=== PATIENT | female | born 1960 | race Two or more races ===

== ENCOUNTER 2020-01-16 05:39 | Day surgery (SDC) | payer OTHER ==
[~2020-01-16 05:39] MED LIST: DANDELION ROOT; ECHINACEA
== END 2020-01-16 16:00 | disposition home or self-care (01) ==
LOC: CIR.AMB 05:39
PROVIDERS: ATTEND Orthopaedic Surgery
DX: M20.11 Hallux valgus (acquired), right foot (principal); Z20.828 Contact with and (suspected) exposure to other viral communicable diseases

== ENCOUNTER → 2020-01-18 | Outpatient (CLI) | payer OTHER | END | disposition home or self-care (01) | LOC: RAD 10:59 | PROVIDERS: ATTEND Orthopaedic Surgery | DX: S92.811A Other fracture of right foot, initial encounter for closed fracture (principal); M79.671 Pain in right foot; M20.11 Hallux valgus (acquired), right foot ==

== ENCOUNTER 2020-02-20 13:13 | Outpatient (CLI) | payer OTHER | END 2020-02-20 13:18 | disposition home or self-care (01) | LOC: RAD 13:13 | PROVIDERS: ATTEND Orthopaedic Surgery | DX: M77.31 Calcaneal spur, right foot (principal); M20.11 Hallux valgus (acquired), right foot; M79.671 Pain in right foot ==

== ENCOUNTER 2020-04-05 07:46 | Outpatient (CLI) | payer OTHER | END 2020-04-05 07:53 | disposition HB | LOC: RAD 07:46 | PROVIDERS: ATTEND Orthopaedic Surgery | DX: M79.671 Pain in right foot (principal); M20.11 Hallux valgus (acquired), right foot ==

== ENCOUNTER 2020-04-05 10:05 | Outpatient (CLI) | payer OTHER | END 2020-04-05 10:10 | disposition home or self-care (01) | LOC: LAB 10:05 | PROVIDERS: ATTEND Orthopaedic Surgery | DX: E56.1 Deficiency of vitamin K (principal) ==

== ENCOUNTER 2020-05-09 13:40 | Outpatient (CLI) | payer OTHER | END 2020-05-09 13:56 | disposition home or self-care (01) | LOC: RAD 13:40 | PROVIDERS: ATTEND Orthopaedic Surgery | DX: M20.11 Hallux valgus (acquired), right foot (principal); M79.671 Pain in right foot ==

== ENCOUNTER 2020-06-13 12:04 | Outpatient (CLI) | payer OTHER | END 2020-06-13 12:16 | disposition home or self-care (01) | LOC: RAD 12:04 | PROVIDERS: ATTEND Orthopaedic Surgery | DX: M79.671 Pain in right foot (principal); M20.11 Hallux valgus (acquired), right foot ==

== ENCOUNTER 2020-08-16 10:14 | Outpatient (CLI) | payer OTHER | END 2020-08-16 10:26 | disposition home or self-care (01) | LOC: RAD 10:14 | PROVIDERS: ATTEND Orthopaedic Surgery | DX: M20.11 Hallux valgus (acquired), right foot (principal) ==

== ENCOUNTER 2022-10-02 13:37 | Outpatient (CLI) | payer OTHER | END 2022-10-02 13:41 | disposition home or self-care (01) | LOC: RAD 13:37 | PROVIDERS: ATTEND Orthopaedic Surgery | DX: M25.571 Pain in right ankle and joints of right foot (principal) ==

== ENCOUNTER 2023-03-18 13:31 | Outpatient (CLI) | payer OTHER | END 2023-03-18 13:36 | disposition home or self-care (01) | LOC: RAD 13:31 | PROVIDERS: ATTEND Orthopaedic Surgery | DX: M25.561 Pain in right knee (principal) ==